=== PATIENT | male | born 1945 | race Caucasian/White ===

== ENCOUNTER → 2021-10-25 | Outpatient (CLI) | payer OTHER ==
[2021-10-25 20:52] LABS: FREE T4 0.78 NG/DL (0.76-1.46); RHEUMATOID FACTOR QUANT < 10.0 IU/ML (<15.0); TOTAL PROTEIN 6.6 GM/DL (6.4-8.2)
[2021-10-25 21:31] LABS: VITAMIN B12 LEVEL 377 PG/ML
[2021-10-25 21:32] LABS: FOLATE > 24.0 NG/ML
[2021-10-25 22:36] LABS: HEMOGLOBIN A1c 5.6 %
[2021-10-27 10:17] LABS: ALBUMIN 4.16 GM/DL (3.29-5.55); ALPHA-1-GLOBULINS 0.25 GM/DL (0.17-0.41)
[2021-10-27 10:18] LABS: ALPHA-1-GLOBULIN % 3.8 % (2.9-4.9); ALPHA-2-GLOBULINS 0.79 GM/DL (0.42-0.99); BETA-1-GLOBULINS 0.38 GM/DL (0.28-0.60); BETA-1-GLOBULINS % 5.8 % (4.7-7.2); BETA-2-GLOBULINS 0.25 GM/DL (0.19-0.55); BETA-2-GLOBULINS % 3.8 % (3.2-6.5); GAMMA GLOBULIN % 11.6 % (11.1-18.8); GAMMA GLOBULINS 0.77 GM/DL (0.65-1.58)
[2021-11-02 12:07] LABS: ANTINUCLEAR ANTIBODIES DIRECT Negative (Negative); SJOGREN'S ANTI SS-A <0.2 AI (0.0-0.9); SJOGREN'S ANTI SS-B <0.2 AI (0.0-0.9); VITAMIN B1 LEVEL WHOLE BLOOD 200.9 nmol/L (66.5-200.0); VITAMIN B6,PYRIDOXAL PHOSPHATE 98.3 ug/L (3.4-65.2); VITAMIN E(ALPHA TOCOPHEROL) 13.4 mg/L (9.0-29.0); VITAMIN E(GAMMA TOCOPHEROL) 1.9 mg/L (0.5-4.9)
== END ==
LOC: M LAB 15:36
PROVIDERS: ATTEND Psychiatry & Neurology Neurology
DX: E11.9 Type 2 diabetes mellitus without complications (principal); E07.9 Disorder of thyroid, unspecified